=== PATIENT | male | born 1995 | race Two or more races ===

== ENCOUNTER 2022-11-08 09:59 | Emergency (ER) | payer MEDICAID, OTHER ==
[~2022-11-08] VITALS: Ht 172.7 cm; Wt 86.2 kg
[2022-11-08] MEDS ORDERED: ERYT3.5O9 RIGHTEYE (10:18)
[2022-11-08 10:28] VITALS: BP 118/70
--- NOTE | 2022-11-08 10:28 | NUR ---
pt left without signing DC paper work
== END 2022-11-08 10:29 | disposition home or self-care (01) ==
LOC: ER 10:02
DX: H00.11 Chalazion right upper eyelid (principal)